=== PATIENT | male | born 1965 | race Caucasian/White ===

== ENCOUNTER 2019-11-06 12:41 | Emergency (ER) | payer OTHER ==
--- NOTE | 2019-11-06 14:26 | EDM.PDOC ---
ED HPI GENERAL MEDICAL PROBLEM - General Chief Complaint: Lower Extremity Injury/Pain Stated Complaint: HIP AND SHOULDER PAIN Time Seen by Provider: 11/06/19 13:02 Source of Information: Reports: Patient - History of Present Illness INITIAL COMMENTS - FREE TEXT/NARRATIVE: History of present illness: 54-year-old male presenting with right shoulder and right hip pain after a fall 2 days ago. The patient reports he was stepping off a wet carpet onto slick floor and fell onto his hip and shoulder. Pain has been ongoing since that time. He did have prior bilateral hip replacements. Patient declines any medication at this time. Review of systems: As per history of present illness and below otherwise all systems reviewed and negative. Past medical history: As per history of present illness and as reviewed below otherwise noncontributory. Surgical history: As per history of present illness and as reviewed below otherwise noncontributory. Bilateral hip replacements. Social history: No reported history of drug or alcohol abuse. Tobacco Family history: As per history of present illness and as reviewed below otherwise noncontributory. Physical exam: GEN: no acute distress, well appearing HEENT: Atraumatic, normocephalic, mucous membranes moist, Neck: supple, nontender, trachea midline. Lungs: No respiratory distress. Heart: RRR Abdomen: Soft, nondistended, nontender. Back: nontender Extremities: Moderate tenderness of the right anterior hip. Pain with range of motion of the right hip. Minimal tenderness but pain with range of motion of the right shoulder.. Neurovascularly intact. Neuro: Awake, alert, oriented. Neuro Exam nonfocal. Skin: warm, dry, no lesions Diagnostics: [] Therapeutics: [] MDM: Impression: [] Plan: [] Definitive disposition and diagnosis as appropriate pending reevaluation and review of above. Right Hip Pain Score (Numeric/FACES): 8 - Related Data Allergies Allergy/AdvReac Type Severity Reaction Status Date / Time No Known Allergies Allergy Verified 11/06/19 14:06 Home Meds: Home Meds Celecoxib 100 mg PO BID 11/06/19 [History] Dextroamphetamine [Dexedrine] 20 mg PO DAILY 11/06/19 [History] Losartan [Cozaar] 50 mg PO DAILY 11/06/19 [History] Omeprazole 40 mg PO DAILY 11/06/19 [History] amLODIPine [Norvasc] 5 mg PO DAILY 11/06/19 [History] Past Medical History HEENT History: Reports: None Cardiovascular History: Reports: Hypertension Respiratory History: Reports: None Gastrointestinal History: Reports: GERD Genitourinary History: Reports: None Neurological History: Reports: None Psychiatric History: Reports: ADHD Endocrine/Metabolic History: Reports: None Hematologic History: Reports: None Immunologic History: Reports: None Oncologic (Cancer) History: Reports: None Dermatologic History: Reports: None - Infectious Disease History Infectious Disease History: Reports: None - Past Surgical History Head Surgeries/Procedures: Reports: None Other Musculoskeletal Surgeries/Procedures:: bilateral hip replacement Social & Family History - Tobacco Use Smoking Status *Q: Current Every Day Smoker Years of Tobacco use: 20 Packs/Tins Daily: 0.2 - Caffeine Use Caffeine Use: Reports: None - Recreational Drug Use Recreational Drug Use: No Review of Systems - Review of Systems Review Of Systems: See Below (See HPI) ED EXAM, GENERAL - Physical Exam Exam: See Below (See HPI) Course - Vital Signs Text/Narrative:: X-ray right shoulder and right hip show no acute fracture or dislocation. Prosthesis in good alignment. Patient declined to take any pain medications here. Discussed plan for continued [id number] pain medicine control including Tylenol. Will refer for orthopedic follow-up. Last Recorded V/S: Last Vital Signs Temp 97.5 F 11/06/19 13:10 Pulse 78 11/06/19 14:55 Resp 15 11/06/19 14:55 BP 126/88 11/06/19 14:55 Pulse Ox 97 11/06/19 14:55 - Orders/Labs/Meds Orders: Active Orders 24 hr Category Date Time Status DME for Discharge [COMM] Stat Oth 11/06/19 13:16 Ordered DME for Discharge [COMM] Stat Oth 11/06/19 14:26 Ordered - Re-Assessments/Exams Free Text/Narrative Re-Assessment/Exam: 11/06/19 14:41 Results discussed with patient x-ray negative. Stable for discharge. The patient is feeling well. We discussed plan for outpatient orthopedic followup - he actually reports he is returning home to [place] where his orthopedic surgeon is located within 1 week and will see him for further evaluation, possible MRI and PT referral. Patient able to ambulate with minimal pain. Departure - Departure Time of Disposition: 14:42 Disposition: Home, Self-Care 01 Clinical Impression: Right shoulder strain, Strain of right hip - Discharge Information Instructions: Hip Pain, Hip Sprain, How to Use Cold Therapy, [id number], Pain Medicine Instructions, [id number] Referrals: PCP,None [Primary Care Provider] - Bairon De La O MD [Ordering Only Provider] - 2 Days Forms: ED Department Discharge Additional Instructions: The following information is given to patients seen in the emergency department who are being discharged to home. This information is to outline your options for follow-up care. We provide all patients seen in our emergency department with a follow-up referral. The need for follow-up, as well as the timing and circumstances, are variable depending upon the specifics of your emergency department visit. If you don't have a primary care physician on staff, we will provide you with a referral. We always advise you to contact your personal physician following an emergency department visit to inform them of the circumstance of the visit and for follow-up with them and/or the need for any referrals to a consulting specialist. The emergency department will also refer you to a specialist when appropriate. This referral assures that you have the opportunity for follow-up care with a specialist. All of these measure are taken in an effort to provide you with optimal care, which includes your follow-up. Under all circumstances we always encourage you to contact your private physician who remains a resource for coordinating your care. When calling for follow-up care, please make the office aware that this follow-up is from your recent emergency room visit. If for any reason you are refused follow-up, please contact the [facility] Emergency Department at and asked to speak to the emergency department charge nurse. Please take Tylenol, 500 mg to 1000 mg every 8 hours for pain control. You can also apply ice to the area which will help. Please start to do some gentle stretching exercises. You may use the shoulder sling for comfort. Please follow-up with the orthopedic surgeon listed above or the orthopedic clinic listed below as soon as possible for further evaluation and to possibly be referred for physical therapy. [facility] [address], [address] [place] [address] Sepsis Event Note (ED) - Evaluation Sepsis Screening Result: No Definite Risk - Focused Exam Vital Signs: Vital Signs Temp Pulse Resp BP Pulse Ox 11/06/19 14:55 78 15 126/88 97 11/06/19 14:29 80 14 131/91 H 98 11/06/19 13:10 97.5 F 91 18 137/90 97 - My Orders Last 24 Hours: My Active Orders 11/06/19 13:16 DME for Discharge [COMM] Stat 11/06/19 14:26 DME for Discharge [COMM] Stat - Assessment/Plan Last 24 Hours: My Active Orders 11/06/19 13:16 DME for Discharge [COMM] Stat 11/06/19 14:26 DME for Discharge [COMM] Stat
--- NOTE | 2019-11-06 14:37 | CR ---
Right shoulder: 3 views of the right shoulder were obtained. Comparison: No previous study. Inferior spurring is noted off the glenoid. Joint space narrowing and spurring is noted within the acromioclavicular joint with spurring most prominent superiorly. No acute fracture or other bony abnormality is appreciated. Impression: 1. Mild degenerative change. 2. Nothing acute is appreciated on right shoulder study. Diagnostic code #2 This report was dictated in MDT
--- NOTE | 2019-11-06 14:37 | CR ---
Pelvis and right hip: AP view of the pelvis was obtained as well as AP and crosstable lateral views of the right hip. Comparison: No previous study. Bilateral hip prosthesis are seen. Components are aligned. Underlying bony structures are intact. No fracture or other abnormality is appreciated. Impression: 1. Bilateral hip prosthesis. 2. Nothing acute is appreciated on AP pelvis or on 2 view right hip exam. Diagnostic code #2 This report was dictated in MDT
== END 2019-11-06 14:56 | disposition home or self-care (01) ==
LOC: MW.ED 12:41
DX: S46.911A Strain of unspecified muscle, fascia and tendon at shoulder and upper arm level, right arm, initial encounter (principal); S76.011A Strain of muscle, fascia and tendon of right hip, initial encounter; I10 Essential (primary) hypertension; K21.9 Gastro-esophageal reflux disease without esophagitis; F90.9 Attention-deficit hyperactivity disorder, unspecified type; F17.210 Nicotine dependence, cigarettes, uncomplicated; Z79.899 Other long term (current) drug therapy; W19.XXXA Unspecified fall, initial encounter; W18.31XA Fall on same level due to stepping on an object, initial encounter
CPT/HCPCS: 73030-26-RT; 73030-RT; 73502-26-RT; 73502-RT; 99283

== ENCOUNTER 2023-02-14 19:42 | Emergency (ER) | payer OTHER ==
[2023-02-14] MEDS ORDERED: Sodium Chloride 0.9% 2.5 ML Syringe FLUSH PRN (21:01)
[2023-02-14] MEDS ORDERED: Sodium Chloride 0.9% 10 ML Syringe FLUSH PRN (21:01)
[2023-02-14 21:23] LABS: BASOPHILS ABSOLUTE AUTO 0.02 K/uL (0.00-0.20); BASOPHILS PERCENT AUTO 0.3 % (0.0-1.0); EOSINOPHILS ABSOLUTE AUTO 0.07 K/uL (0.00-0.45); EOSINOPHILS PERCENT AUTO 1.2 % (0.0-6.0); HEMOGLOBIN 16.4 g/dL (14.0-18.0); IMMATURE GRAN ABSOLUTE AUTO 0.01 K/uL (0.00-0.05); IMMATURE GRAN PERCENT AUTO 0.2 % (0.0-0.4); LYMPHOCYTES ABSOLUTE AUTO 1.78 K/uL (1.00-4.80); LYMPHOCYTES PERCENT AUTO 31.1 % (24.0-44.0); MEAN CORPUSCULAR HEMOGLOBIN 32.1 pg (28.0-32.0); MEAN CORPUSCULAR HGB CONC 35.7 g/dL (32.0-36.0); MEAN PLATELET VOLUME 10.9 fL (9.4-12.4); MONOCYTES ABSOLUTE AUTO 0.66 K/uL (0.00-0.80); MONOCYTES PERCENT AUTO 11.5 % (0.0-8.0); NEUTROPHILS ABSOLUTE AUTO 3.19 K/uL (1.80-7.70); NEUTROPHILS PERCENT AUTO 55.7 % (41.0-71.0); PLATELET COUNT,PLT 165 K/uL (150-400); RED BLOOD CELL COUNT 5.11 M/uL (4.52-5.90); WHITE BLOOD CELL COUNT,WBC 5.73 K/uL (3.9-11.3)
[2023-02-14 21:46] LABS: A/G RATIO 0.9 (0.9-1.6); ALBUMIN 3.9 g/dL (3.4-5.0); BILIRUBIN TOTAL 0.5 mg/dL (0.2-1.0); CALCIUM 8.9 mg/dL (8.5-10.1); CARBON DIOXIDE,CO2 29.2 mmol/L (21.0-32.0); CREATININE 2.2 mg/dL (0.8-1.3); EST CRCL DRUG DOSING (CG) 38.51 mL/min; POTASSIUM,K 4.1 mmol/L (3.5-5.1); PROTEIN TOTAL,TP 8.2 g/dL (6.4-8.2)
== END 2023-02-14 22:32 | disposition home or self-care (01) ==
LOC: MW.ED 19:42
DX: U07.1 COVID-19 (principal); N18.32 Chronic kidney disease, stage 3b; I10 Essential (primary) hypertension; K21.9 Gastro-esophageal reflux disease without esophagitis; Z79.899 Other long term (current) drug therapy
CPT/HCPCS: 36415; 71046; 80053; 83690; 84484; 85025; 93005; 99285; J3490; 93010; 99283